=== PATIENT | male | born 1975 | race Caucasian/White ===

== ENCOUNTER → 2017-09-27 | Outpatient (CLI) | payer OTHER ==
[~2017-09-27] MED LIST: IOPAMIDOL (ISOVUE 370) 100 ML BTL IV ONE
== END ==
LOC: FIMAGING 13:46
PROVIDERS: ATTEND Thoracic Surgery (Cardiothoracic Vascular Surgery)
DX: I71.2 Thoracic aortic aneurysm, without rupture (principal); R91.1 Solitary pulmonary nodule
CPT/HCPCS: Q9967

== ENCOUNTER 2017-10-09 05:48 | Inpatient (IN) | payer SELFPAY ==
[2017-10-09] MEDS ORDERED: INSULIN REGULAR HUMAN 100 UNIT in NS 100 ML IV ONE (06:00)
[2017-10-09] MEDS ORDERED: TRANEXAMIC ACID 1,000 MG in NS (SYRINGE) 50 ML IV ONE (06:00)
[2017-10-09] MEDS ORDERED: MANNITOL 25% 12.5 GM/50 ML VIAL IVP ONE (06:00)
[2017-10-09] MEDS ORDERED: niCARdipine/NACL 200 ML IV SCH (06:00)
[2017-10-09] MEDS ORDERED: PHENYLEPHRINE HCL 50 MG in NS 250 ML IV ONE (06:00)
[2017-10-09] MEDS ORDERED: NOREPINEPHRINE BITARTRATE 16 MG in NS 250 ML IV ONE (06:00)
[2017-10-09] MEDS ORDERED: CITRATE DEXTROSE SOLN 500 ML BAG MISC ONE (06:00)
[2017-10-09] MEDS ORDERED: MUPIROCIN 2% 22 GM OINT NS ONE (06:00)
[2017-10-09] MEDS ORDERED: SODIUM BICARBONATE 20 MEQ, LIDOCAINE 1% 10 ML in NORMOSOL-R 1,000 ML MISC ONE (06:00)
[2017-10-09] MEDS ORDERED: ALBUMIN 5% 250 ML BOTTLE IV ONE ×2 (06:18→10:16)
[2017-10-09] MEDS ORDERED: PROTAMINE SULFATE 50 MG/5 ML VIAL IVP ONE (06:18)
[2017-10-09] MEDS ORDERED: CALCIUM CHLORIDE 1 GM/10 ML INJ ONE ×2 (06:19→07:16)
[2017-10-09] MEDS ORDERED: ceFAZolin 2 GM/SWFI 2 GM/20 ML SYR IVP ONE (06:19)
[2017-10-09] MEDS ORDERED: niCARdipine/NACL/200 ML BAG IV ONE (06:19)
[2017-10-09] MEDS ORDERED: MILRINONE/DEXTROSE/100 ML BAG IV ONE (06:19)
[2017-10-09] MEDS ORDERED: DOPamine/DEXTROSE/250 ML BAG IV ONE (06:19)
[2017-10-09] MEDS ORDERED: LIDOCAINE 2% 100 MG/5 ML SYR ONE ×2 (06:19→07:16)
[2017-10-09] MEDS ORDERED: NA BICARBONATE 50 MEQ/50 ML VIAL ONE (06:19)
[2017-10-09] MEDS ORDERED: CITRATE DEXTROSE SOLN 500 ML BAG ONE (06:19)
[2017-10-09] MEDS ORDERED: HEPARIN 10,000 UNIT/10 ML MDV (1,000 UNIT/ML) ONE (06:19)
[2017-10-09] MEDS ORDERED: LIDOCAINE 1% 2 ML INJ ID PRN (06:20)
[2017-10-09] MEDS ORDERED: LR 1,000 ML IV ONE (06:20)
[2017-10-09] MEDS ORDERED: MAGNESIUM SULFATE 1 GM/2 ML VIAL ONE (06:20)
[2017-10-09] MEDS ORDERED: ceFAZolin 1 GM VIAL ONE (06:20)
[2017-10-09] MEDS ORDERED: AMIODARONE HCL 150 MG/3 ML VIAL ONE (06:20)
[2017-10-09] MEDS ORDERED: methylPREDNISolone SOD SUCC 1 GM/8 ML VIAL ONE (06:20)
[2017-10-09] MEDS ORDERED: ADENOSINE 6 MG/2 ML VIAL ONE (06:20)
--- NOTE | 2017-10-09 06:52 | PDHPUP ---
History & Physical Update H&P update statement: This history and physical update is based on an assessment of the patient which was completed after admission or registration (within 24 hours), but prior to the surgery/procedure. H&P update: H&P reviewed & patient examined, no change in patient's condition since H&P completed
[2017-10-09] MEDS ORDERED: MIDAZOLAM 2 MG/2 ML VIAL ONE ×2 (07:04→07:16)
--- NOTE | 2017-10-09 07:06 | PDANEPAE ---
ANE History of Present Illness A/S and ascending Aortic Aneurism s/f repair ANE Past Medical History - Cardiovascular History Hx Hypertension: No Hx Arrhythmias: No Hx Chest Pain: No Hx Coronary Artery / Peripheral Vascular Disease: No Hx CHF / Valvular Disease: No Hx Palpitations: No Cardiovascular History Comment: HEART MURMUR SINCE CHILDHOOD - Pulmonary History Hx COPD: No Hx Asthma/Reactive Airway Disease: No Hx Recent Upper Respiratory Infection: No Hx Oxygen in Use at Home: No Hx Sleep Apnea: No Sleep Apnea Screening Result - Last Documented: Negative - Neurologic History Hx Cerebrovascular Accident: No Hx Seizures: No Hx Dementia: No - Endocrine History Hx Diabetes: No - Renal History Hx Renal Disorders: No - Liver History Hx Hepatic Disorders: No - Neurological & Psychiatric Hx Hx Neurological and Psychiatric Disorders: No - Cancer History Hx Cancer: No - Congenital Disorder History Hx Congenital Disorders: No - GI History Hx Gastrointestinal Disorders: No - Other Health History Other Health History: NEG - Chronic Pain History Chronic Pain: No - Surgical History Prior Surgeries: NONE ANE Review of Systems Review of Systems: - Exercise capacity METS (RN): 4 METS ANE Patient History - Allergies Allergies/Adverse Reactions: Penicillins Allergy (Verified 10/07/17 16:34) CHILDHOOD REACTION UNK - Home Medications Home medications: home medication list seen and reviewed Home Medications: Herbals/Supplements -Info Only 10/07/17 [Last Taken Unknown] - NPO status NPO Status: no food or drink >8 hours NPO Since - Liquids (Date): 10/08/17 NPO Since - Liquids (Time): 19:00 NPO Since - Solids (Date): 10/08/17 NPO Since - Solids (Time): 19:00 - Anes Hx Anes Hx: no prior problems - Smoking Hx Smoking Status: Former smoker - Alcohol Use Alcohol Use: Occasionally - Family Anes Hx Family Anes Hx: none Family Hx Anesthesia Complications: NONE ANE Labs/Vital Signs - Vital Signs Blood Pressure: 96/62 Heart Rate: 71 Respiratory Rate: 16 O2 Sat (%): 96 Height: 180.34 cm Weight: 74.843 kg ANE Physical Exam - Airway Mallampati Score: Class 1 Mouth exam: normal dental/mouth exam - Pulmonary Pulmonary: no respiratory distress - Cardiovascular Cardiovascular: regular rate and rhythym - ASA Status ASA Status: II ANE Anesthesia Plan Anesthesia Plan: general endotracheal anesthesia Lines/Monitors: arterial line, central line, MINE
[2017-10-09] MEDS ORDERED: ROCURONIUM 100 MG/10 ML VIAL ONE (07:16)
[2017-10-09] MEDS ORDERED: PHENYLEPHRINE HCL 100 MCG/ML SYR ONE (07:16)
[2017-10-09] MEDS ORDERED: REMIFENTANIL HCL 1 MG VIAL ONE (07:16)
[2017-10-09] MEDS ORDERED: DEXAMETHASONE 4 MG/ML VIAL ONE ×2 (07:16→07:17)
[2017-10-09] MEDS ORDERED: PROPOFOL/EMULSION 500 MG/50 ML BOTTLE IV ONE (07:16)
[2017-10-09] MEDS ORDERED: fentaNYL 250 MCG/5 ML INJ ONE (07:16)
[2017-10-09] MEDS ORDERED: ONDANSETRON 4 MG/2 ML VIAL ONE (07:17)
[2017-10-09] MEDS ORDERED: LIDOCAINE HCL 160 MG/4 ML LTA KIT TP ONE (07:25)
[2017-10-09] MEDS ORDERED: DEXMEDETOMIDINE/NS 4MCG/ML 50 ML BTL IV ONE (09:40)
[2017-10-09] MEDS ORDERED: MAGNESIUM SULF 2 GM/WATER 50 ML BAG IV ONE (10:16)
[2017-10-09] MEDS ORDERED: SUGAMMADEX SODIUM 200 MG/2 ML VIAL IVP ONE (10:31)
[2017-10-09] MEDS ORDERED: PANTOPRAZOLE SODIUM 40 MG VIAL IVP ONE (10:54)
[2017-10-09] MEDS ORDERED: SODIUM CL NASAL 45 ML BTL EACHNARE PRN (10:54)
[2017-10-09] MEDS ORDERED: D50W 25 GM/50 ML SYR IVP PRN (10:54)
[2017-10-09] MEDS ORDERED: LACTULOSE 20 GM/30 ML UDCUP PO PRN (10:54)
[2017-10-09] MEDS ORDERED: fentaNYL 100 MCG/2 ML INJ IVP PRN (10:54)
[2017-10-09] MEDS ORDERED: MAGNESIUM SULF 2 GM/WATER 50 ML IV ONE (10:54)
[2017-10-09] MEDS ORDERED: POLYETHYLENE GLYCOL 3350 17 GM PKT PO PRN (10:54)
[2017-10-09] MEDS ORDERED: MAGNESIUM HYDROXIDE 30 ML UDCUP PO PRN (10:54)
[2017-10-09] MEDS ORDERED: BISACODYL 10 MG SUPP PR PRN (10:54)
[2017-10-09] MEDS ORDERED: MEPERIDINE 25 MG/ML SYR IVP PRN (10:54)
[2017-10-09] MEDS ORDERED: ONDANSETRON DISINTEGRATING 4 MG TAB PO PRN (10:54)
[2017-10-09] MEDS ORDERED: ACETAMINOPHEN 650 MG SUPP PR PRN (10:54)
[2017-10-09] MEDS ORDERED: POTASSIUM Cl (KCl) 50 ML IV PRN (10:54)
[2017-10-09] MEDS ORDERED: CEPACOL LOZENGE PO PRN (10:54)
[2017-10-09] MEDS ORDERED: fentaNYL 25 MCG PATCH TD ONE (11:00)
[2017-10-09] MEDS ORDERED: NS 1,000 ML IV SCH (11:00)
[2017-10-09] MEDS ORDERED: INSULIN REGULAR HUMAN 100 UNIT in NS 100 ML IV SCH (11:00)
[2017-10-09] MEDS: KETOROLAC 15 MG/1 ML SDV IVP SCH ×3 (11:20→23:32)
--- NOTE | 2017-10-09 11:38 | CPEKG ---
Heart Rate: 75 RR Interval: 800 P-R Interval: 176 QRSD Interval: 118 QT Interval: 436 QTC Interval: 487 P [place]: 69 QRS [place]: -52 T Wave [place]: 73 EKG Severity - ABNORMAL ECG - EKG Impression: SINUS RHYTHM EKG Impression: IVCD EKG Impression: LEFT VENTRICULAR HYPERTROPHY Electronically Signed By: Sunil Kothari 09-Oct-2017 17:28:11
--- NOTE | 2017-10-09 11:50 | POSTANESTH ---
Post Anesthetic Evaluation Cardiovascular Status: Normal, Stable, Similar to Pre-Op Cond Respiratory Status: Tx Decrease in SpO2 Level of Consciousness/Mental Status: Can Participate in Eval, Mildly Sleepy, Arousable Pain Control: Inadeq, Add Tx Required Nausea/Vomiting Control: Adequate, Prn Tx Ordered Complications Possibly Related to Anesthesia: None Noted
--- NOTE | 2017-10-09 12:24 | GOP ---
[f rep st] OPERATIVE REPORT DATE OF OPERATION: 10/09/2017 SURGEON: Conner Figueroa DO PARK NATURALIST: Demetri Fraser PA-C ANESTHESIOLOGIST: Claude Raygoza MD PREOPERATIVE DIAGNOSIS: Critical aortic stenosis with bicuspid aortic valve and ascending aortic ane urysm. POSTOPERATIVE DIAGNOSIS: Critical aortic stenosis with bicuspid aortic valve and ascending aortic an eurysm. PROCEDURE PERFORMED: 1. Aortic valve replacement #25 Magna bioprosthesis. 2. Replace ascending aorta with #24 Hemashield graft. 3. AtriClip the left atrial appendage. FINDINGS: Patient was found to have critical aortic stenosis, symptomatic. Screening CT scan reveal ed a 5 cm ascending aorta. DESCRIPTION OF PROCEDURE: He was consented for surgery, brought to the operating room, intubated. M onitoring lines were placed. He was prepped and draped in sterile classical manner. A sternotomy was performed. He was heparinized cannulated in the transverse arch and right atrium. Cardiopulmonary bypass was begun. A cardioplegic arrest was obtained with antegrade cardioplegia, re trograde cardioplegia, topical hypothermia, and systemic cooling. Initially, the aorta was excised from sinotubular junction where was normal in dimension at 24 mm up to the base of the innominate artery, where it tapered back to normal. He appeared to have a bovine arch. The sinuses appeared to be normal. The aorta was very thin-walled and quite friable consisten t with connective tissue disorder. Heavily calcified bicuspid valve was excised in total. The anulu s was debrided and the LV chamber was irrigated. CO2 was infused. A 25 mm Magna valve was sutured i n place in a supra-annular position with interrupted 2-0 Tycron pledgeted mattress sutures. We then sutured a 24 mm Hemashield graft cut at a bevel to the undersurface of the arch with a continuous run elbert 3-0 Prolene suture reinforced in several sites with BioGlue applied. We performed a proximal an astomosis to the sinotubular junction in similar fashion. BioGlue was applied. It was tested under pressure. No bleeding was encountered. The cross-clamp was removed with suction on the ascending ao rtic vent and LV sump in Trendelenburg. We then placed an AtriClip across the base of the left atria l appendage. When no further air was identified, he was weaned from bypass. The heparin was reversed with protami ne. The cannula was removed and oversewn. Echo revealed good valvular function without insufficienc y and good biventricular function. He was noted to have significant left ventricular hypertrophy. C annula was removed and oversewn. Protamine was administered. 2 ventricular pacing wires and 2 media stinal drains were placed. The thymic fat and pericardium were closed. Chest was closed in standard fashion. Patient was returned to ICU in stable condition. /[id number]/MODL
--- NOTE | 2017-10-09 12:47 | ASMTCASEMG ---
Living Arrangements What is your living Answers: With Spouse arrangement? Who do you live with? Type Of Residence What kind of residence do Answers: House you live in? Discharge Plan Comments Coordination Status Comments Notes: Patient is a 42yo male who lives off the [address] in [place] but returned to [place] for guidance with his heart issues. Patient is having a valve aortic replacement and an aneurysm ascending aortic repair with Dr. Figueroa. PT/OT have been ordered. Will await therapy evals to determine D/C plan. CM will follow. Date Signed: 10/09/2017 12:46 PM Electronically Signed By:Chana Calderon LCSW
[2017-10-09] MEDS: ALBUMIN 5% 250 ML IV PRN ×2 (13:55→14:11)
[2017-10-09] MEDS ORDERED: ceFAZolin 2 GM/DEXTROSE 100 ML IV SCH (14:00)
[2017-10-09] MEDS: ONDANSETRON 4 MG/2 ML VIAL IVP PRN (14:12)
[2017-10-09] MEDS ORDERED: HYDROmorphONE/DILAUDID 6 MG/30 ML PCA IV PRN (15:14)
[2017-10-09] MEDS ORDERED: NALOXONE HCL 0.4 MG/ML INJ IVP PRN (15:14)
[2017-10-09] MEDS ORDERED: DEXMEDETOMIDINE IN 0.9 % NACL 50 ML IV SCH (15:30)
[2017-10-09] MEDS: ceFAZolin 2 GM/SWFI 2 GM/20 ML SYR IVP SCH ×2 (15:48→23:31)
[2017-10-09] MEDS: ALBUMIN 5% 250 ML IV SCH ×2 (15:58→16:15)
[2017-10-09] MEDS: MUPIROCIN 2% 22 GM OINT NS SCH (21:09)
[2017-10-09] MEDS: SENNOSIDES/DOCUSATE SODIUM TAB PO SCH (21:09)
[2017-10-10 04:16] LABS: PLATELET COUNT 213 10^3/uL (150-400)
[2017-10-10] MEDS: METOCLOPRAMIDE 10 MG/2 ML VIAL IVP PRN ×3 (05:04→23:54)
[2017-10-10] MEDS: ONDANSETRON 4 MG/2 ML VIAL IVP PRN ×2 (05:04→13:41)
[2017-10-10] MEDS: KETOROLAC 15 MG/1 ML SDV IVP SCH ×4 (06:08→23:48)
[2017-10-10] MEDS: ceFAZolin 2 GM/SWFI 2 GM/20 ML SYR IVP SCH ×3 (06:57→23:46)
[2017-10-10] MEDS: HEPARIN 5,000 UNIT/0.5 ML SYR SC SCH ×3 (06:57→21:07)
--- NOTE | 2017-10-10 07:38 | SOAPPROG ---
SOAP Progress Note Assessment/Plan: POD #1: AVR with #25 Magna bioprosthesis, asc ao replacement with #24 graft, AtriClip BRIELLE Critical bicuspid AV stenosis s/p AVR with bioprosthesis - CTs to bulb suction, FC/AL out - ASA for thromboprophylaxis - Beta-agustin for secondary prevention when appropriate - Heparin SQ/SCDs for DVT prophylaxis - PT/OT - Transfer to PCU Asc ao aneurysm s/p replacement with #24 graft - Mgmt as per AVR Acute blood loss anemia - Stable without the need for transfusions Subjective: Feels intermittent nausea. Denies vomiting. Denies pain/SOB. Objective: Vital Signs Temp Pulse Resp BP Pulse Ox 36.6 C 87 18 124/65 H 98 10/10/17 07:00 10/10/17 07:00 10/10/17 07:00 10/10/17 07:00 10/10/17 07:00 Laboratory Results 10/10/17 04:00 10/10/17 04:00 10/09/17 10/10/17 10/11/17 05:59 05:59 05:59 Intake Total 1784.2 Output Total 1982 Balance -197.8 Physical Exam - Physical Exam General Appearance: WD/WN, alert, no apparent distress EENT: No scleral icterus (R), No scleral icterus (L) Neck: normal inspection Respiratory: No respiratory distress Cardiac/Chest: regular rate, rhythm Abdomen: non-tender, soft, No distended Skin: normal color, warm/dry Extremities: No pedal edema Neuro/Psych: no motor/sensory deficits, alert, normal mood/affect, oriented x 3 ICD10 Worksheet Patient Problems: Problems Problem Status Onset Aortic valve stenosis with insufficiency Acute Ascending aortic aneurysm Acute Bicuspid aortic valve Acute S/P AVR (aortic valve replacement) Acute S/P ascending aortic aneurysm repair Acute
[2017-10-10] MEDS: HYDROCODONE/APAP 5/325 TAB PO PRN ×2 (07:43→11:04)
[2017-10-10] MEDS: ASPIRIN 81 MG CHEWABLE TAB PO SCH (09:25)
[2017-10-10] MEDS: PANTOPRAZOLE SODIUM 40 MG TAB PO SCH (09:26)
[2017-10-10] MEDS: MUPIROCIN 2% 22 GM OINT NS SCH ×2 (09:26→20:53)
[2017-10-10] MEDS: SENNOSIDES/DOCUSATE SODIUM TAB PO SCH ×2 (09:26→20:52)
[2017-10-10] MEDS: traMADol 50 MG TAB PO PRN ×3 (14:19→23:47)
[2017-10-11] MEDS: traMADol 50 MG TAB PO PRN ×4 (04:02→20:00)
[2017-10-11 04:08] LABS: PLATELET COUNT 213 10^3/uL (150-400)
[2017-10-11] MEDS: HEPARIN 5,000 UNIT/0.5 ML SYR SC SCH ×3 (05:55→20:01)
[2017-10-11] MEDS: KETOROLAC 15 MG/1 ML SDV IVP SCH (05:55)
--- NOTE | 2017-10-11 07:36 | SOAPPROG ---
SOAP Progress Note Assessment/Plan: Assessment: POD#2 AVR with #25 Magna bioprosthesis, asc ao replacement with #24 graft, prophylactic AtriClip ligation BRIELLE BAV with critical and asc ao aneurysm - s/p tissue AVR with asc ao replacement with dacron interposition graft. Stable early postop course. No sig fluid overload. AF prophylaxis with BB as tolerated. Antithrombotic prophylaxis with ASA alone pending stability of rhythm. Acute blood loss anemia - Stable without the need for transfusions. Heparin SQ/ SCDs for DVT prophylaxis Plan: CTs and Vwire removed. Advance diet. Switch toradol to prn ibuprofen. Start metoprolol tartrate 12.5 mg BID with conservative hold parameters. Cont inc activity and pulm toilet. Dispo - Anticipate home without services next 1-2 days. 10/11/17 07:34 Subjective: Comfortable. Improving appetite. + flatus. Moving independently with relative ease. Objective: Vital Signs Temp Pulse Resp BP Pulse Ox 36.9 C 83 15 116/60 96 10/11/17 03:57 10/11/17 03:57 10/11/17 03:57 10/11/17 03:57 10/11/17 03:57 Laboratory Results 10/11/17 04:00 10/11/17 04:00 10/10/17 10/11/17 10/12/17 05:59 05:59 05:59 Intake Total 1784.2 1000 Output Total 1982 210 Balance -197.8 790 HR and BP controlled. No ectopy. Almost off O2. CTs at removal criteria. Adequate fluid balance. Labs ok. - Pending Discharge Pending Discharge Within 48 Hours: Yes Pending Discharge Date: 10/13/17 Pending Discharge Time: 11:00 Physical Exam - Physical Exam General Appearance: alert, no apparent distress Respiratory: lungs clear, other (blakes x 2 to bulb suction, thin serosang drainage. Both tubes pulled without incident after Vwire out.) Cardiac/Chest: regular rate, rhythm, other (Sternum grossly stable. Sternotomy CDI.) Abdomen: normal bowel sounds, non-tender, soft Skin: warm/dry Extremities: other (no visible edema) ICD10 Worksheet Patient Problems: Problems Problem Status Onset Aortic valve stenosis with insufficiency Acute Ascending aortic aneurysm Acute Bicuspid aortic valve Acute S/P AVR (aortic valve replacement) Acute S/P ascending aortic aneurysm repair Acute
[2017-10-11] MEDS: MUPIROCIN 2% 22 GM OINT NS SCH (08:10)
[2017-10-11] MEDS: ASPIRIN 81 MG CHEWABLE TAB PO SCH (08:10)
[2017-10-11] MEDS: PANTOPRAZOLE SODIUM 40 MG TAB PO SCH (08:10)
[2017-10-11] MEDS: SENNOSIDES/DOCUSATE SODIUM TAB PO SCH ×2 (08:10→19:53)
[2017-10-11] MEDS: METOPROLOL TARTRATE 25 MG TAB PO SCH ×2 (09:18→19:55)
[2017-10-11] MEDS: IBUPROFEN 600 MG TAB PO PRN (11:55)
[2017-10-11] MEDS ORDERED: FUROSEMIDE 20 MG/2 ML VIAL IVP ONE (16:53)
[2017-10-11] MEDS: METOCLOPRAMIDE 10 MG/2 ML VIAL IVP PRN (19:52)
[2017-10-12] MEDS: HEPARIN 5,000 UNIT/0.5 ML SYR SC SCH ×3 (05:31→21:19)
--- NOTE | 2017-10-12 07:20 | SOAPPROG ---
SOAP Progress Note Assessment/Plan: Assessment/Plan: POD #3: AVR with #25 Magna bioprosthesis, asc ao replacement with #24 graft, AtriClip BRIELLE Critical bicuspid AV stenosis s/p AVR with bioprosthesis - CTs, PW and hill are out. - Routine postop echo was performed today. Results pending. - ASA for thromboprophylaxis - Beta-agustin for secondary prevention - Heparin SQ/SCDs for DVT prophylaxis - PT/OT Asc ao aneurysm s/p replacement with #24 graft - Mgmt as per AVR Acute blood loss anemia - Stable without the need for transfusions Nausea - Persists despite Zofran. Patient does not think this is related to his pain meds. - Will add Scop patch Pain - Controlled with Ultram Constipation - Passing flatus. Continue current bowel protocol. - Will order suppository today. If not effective will order an enema. Dispo - Likely discharge to home tomorrow. Subjective: Patient reports continued nausea. He does not feel comfortable going home without having a bowel movement yet. Reports good pain control. Objective: Vital Signs Temp Pulse Resp BP Pulse Ox 36.5 C 90 17 112/77 94 10/12/17 05:48 10/12/17 05:48 10/12/17 05:48 10/12/17 05:48 10/12/17 05:48 Laboratory Results 10/11/17 04:00 10/12/17 05:30 10/11/17 10/12/17 10/13/17 05:59 05:59 05:59 Intake Total 1000 1850 Output Total 210 1732 Balance 790 118 Physical Exam - Physical Exam General Appearance: WD/WN, alert Respiratory: lungs clear, decreased breath sounds (bases) Cardiac/Chest: regular rate, rhythm, systolic murmur (LSB/RSB 2nd-3rd ICS ), other (sternum stable, sternotomy c/d/i) Abdomen: normal bowel sounds, non-tender, soft Skin: warm/dry Extremities: other (no lower extremity edema) Neuro/Psych: alert, normal mood/affect, oriented x 3 ICD10 Worksheet Patient Problems: Problems Problem Status Onset Aortic valve stenosis with insufficiency Acute Ascending aortic aneurysm Acute Bicuspid aortic valve Acute S/P AVR (aortic valve replacement) Acute S/P ascending aortic aneurysm repair Acute
[2017-10-12] MEDS: SENNOSIDES/DOCUSATE SODIUM TAB PO SCH ×2 (08:28→21:47)
[2017-10-12] MEDS: ACETAMINOPHEN 325 MG TAB PO PRN ×2 (08:28→20:05)
[2017-10-12] MEDS: ASPIRIN 81 MG CHEWABLE TAB PO SCH (08:29)
[2017-10-12] MEDS: METOPROLOL TARTRATE 25 MG TAB PO SCH ×2 (08:29→21:17)
[2017-10-12] MEDS: traMADol 50 MG TAB PO PRN (08:29)
[2017-10-12] MEDS: PANTOPRAZOLE SODIUM 40 MG TAB PO SCH (08:29)
[2017-10-12] MEDS: ONDANSETRON 4 MG/2 ML VIAL IVP PRN (08:39)
[2017-10-12] MEDS ORDERED: BISACODYL 10 MG SUPP PR ONE ×2 (09:43→12:30)
[2017-10-12] MEDS ORDERED: SCOPOLAMINE HYDROBROMIDE 1 MG/3 DAYS PATCH TD SCH (09:45)
[2017-10-12] MEDS: IBUPROFEN 600 MG TAB PO PRN ×2 (12:35→20:05)
--- NOTE | 2017-10-12 12:36 | ECHO ---
[email or web address] [address] [address] Main: [phone] Fax: Transthoracic Echocardiogram Name: YASEMIN BRUNER MR#: [id number] Study Date: 10/12/2017 Study Time: 07:54 AM Date of : 1975 Age: 42 year(s) Height: 180.3 cm (71 in.) Weight: 78.02 kg (172 lb.) BSA: 1.98 m2 Gender: Male Examination: Echo Indication: Routine baseline postop s/p AVR #25 CE 10 Magna bovine valve Image Quality: Contrast: Requested by: Shanthi Waller BP: 106 mmHg/65 mmHg Heart Rate: Rhythm: Indication: Routine baseline postop s/p AVR #25 CE Magna bovine valve Procedure Staff Side Puller: Laura Ugarte RDCS Reading Physician: Evens Kang MD Requesting Provider: Conclusions: Mild concentric LV hypertrophy. Normal global systolic LV function. EF is 64 %. The aortic valve is a bioprosthesis. No AV velocities obtained from this limited study. No turbulence visualized with color flow doppler indicating no high velocities.. Mild tricuspid regurgitation is present. Limited views available for visualization (pt sleeps in chair). Would recommend repeat in AM when patient is able to be in bed.. Measurements: Chambers Valvular Assessment AV/MV Valvular Assessment TV/PV Normal Normal Normal Name Value Range Name Value Range Name Value Range Ao Lilly (2D): 3.2 cm (1.4 cm-2.6 TR Vmax: 2.31 mm/s ( - ) cm) TR PGmax: 21 mmHg ( - ) IVSd (2D): 0.9 cm (0.6 cm-1.1 syst. PAP: 26 mmHg ( - ) cm) LVDd (2D): 4.3 cm (4.2 cm-5.9 cm) LVDs (2D): 2.8 cm (2.1 cm-4 cm) LVPWd (2D): 0.8 cm (0.6 cm-1 cm) LVEF (2D): 64 (>=54 %) Continued Measurements: Chambers Valvular Assessment TV/PV Patient: YASEMIN BRUNER Study Date: 10/12/2017 Page 1 of 2 07:54 AM Name Value Name Value LADs: 3.2 cm CVP (est.): 5 mmHg Findings: Left Ventricle: Mild concentric LV hypertrophy. Normal global systolic LV function. EF is 64 %. Aortic Valve: The aortic valve is a bioprosthesis. No AV velocities obtained from this limited study. No turbulence visualized with color flow doppler indicating no high velocities.. Tricuspid Valve: Mild tricuspid regurgitation is present. Exam Comments: Limited views available for visualization (pt sleeps in chair). Would recommend repeat in AM when patient is able to be in bed.. (No Signature Object) Patient: YASEMIN BRUNER Study Date: 10/12/2017 Page 2 of 2 07:54 AM [id number]
--- NOTE | 2017-10-12 12:41 | ASMTCMCOM ---
CM Note CM Note Notes: 10/12/2017 Case Management Note Met w/pt and Nadira [phone]. Pt has rented an Air bnb for a short term rental until 11/16/2017. Pt has siblings and parents in the [place] area for support. Pt mom Kenia can be reached at [phone]. PT is recommending home with outpatient rehab. There are no other case management d/c needs identified. Case Management d/c poc: home independent with follow up as directed. Case Management available if needs change. Date Signed: 10/12/2017 12:40 PM Electronically Signed By:Sowmya Freeman RN
--- NOTE | 2017-10-12 16:31 | SOAPPROG ---
SOAP Progress Note Assessment/Plan: Assessment: Doing well. Feeling better with scopolamine patch. Ambulating well. Home in am Plan: 10/12/17 16:30 Subjective: C/o nausea last night and this morning. Feeling better now. BM + Objective: Vital Signs Temp Pulse Resp BP Pulse Ox 37.0 C 80 12 102/62 93 10/12/17 12:00 10/12/17 12:00 10/12/17 12:00 10/12/17 12:00 10/12/17 12:00 Laboratory Results 10/11/17 04:00 10/12/17 05:30 10/11/17 10/12/17 10/13/17 05:59 05:59 05:59 Intake Total 1000 1850 Output Total 210 1732 Balance 790 118 Neuro intact Breathing comfortably ICD10 Worksheet Patient Problems: Problems Problem Status Onset Aortic valve stenosis with insufficiency Acute Ascending aortic aneurysm Acute Bicuspid aortic valve Acute S/P AVR (aortic valve replacement) Acute S/P ascending aortic aneurysm repair Acute
[2017-10-13] MEDS: ACETAMINOPHEN 325 MG TAB PO PRN ×2 (00:45→06:02)
[2017-10-13] MEDS: IBUPROFEN 600 MG TAB PO PRN ×2 (06:07→13:06)
[2017-10-13] MEDS: HEPARIN 5,000 UNIT/0.5 ML SYR SC SCH ×2 (06:07→14:22)
--- NOTE | 2017-10-13 08:16 | SOAPPROG ---
SOAP Progress Note Assessment/Plan: Assessment/Plan: POD #4: AVR with #25 Magna bioprosthesis, asc ao replacement with #24 graft, AtriClip BRIELLE Critical bicuspid AV stenosis s/p AVR with bioprosthesis - Routine postop echo performed yesterday. Normal EF and high gradients across bioprosthetic aortic valve were not appreciated. - ASA for thromboprophylaxis - Beta-agustin for secondary prevention - Heparin SQ/SCDs for DVT prophylaxis (patient refusing) - PT/OT Asc ao aneurysm s/p replacement with #24 graft - Mgmt as per AVR Acute blood loss anemia - Stable without the need for transfusions Urinary hesitancy - Will obtain Urinalysis. Nausea - Improved with Scop patch. Pain - Controlled with Motrin and Ultram prn. Constipation - Resolved. Patient has had multiple BMs since yesterday. Dispo - Will discharge to home today on home O2. Subjective: Patient reports improved nausea and good pain control. Objective: Vital Signs Temp Pulse Resp BP Pulse Ox 37.1 C 68 18 115/67 94 10/13/17 05:58 10/13/17 05:58 10/13/17 05:58 10/13/17 05:58 10/13/17 05:58 Laboratory Results 10/11/17 04:00 10/12/17 05:30 10/12/17 10/13/17 10/14/17 05:59 05:59 05:59 Intake Total 1850 300 Output Total 1732 200 Balance 118 100 Physical Exam - Physical Exam General Appearance: WD/WN, alert, no apparent distress Respiratory: lungs clear, decreased breath sounds (right base) Cardiac/Chest: regular rate, rhythm (sternum stable, sternotomy c/d/i) Abdomen: normal bowel sounds, non-tender, soft Skin: normal color, warm/dry Extremities: other (minimal lower extremity edema) Neuro/Psych: alert, normal mood/affect, oriented x 3 ICD10 Worksheet Patient Problems: Problems Problem Status Onset Aortic valve stenosis with insufficiency Acute Ascending aortic aneurysm Acute Bicuspid aortic valve Acute S/P AVR (aortic valve replacement) Acute S/P ascending aortic aneurysm repair Acute
[2017-10-13] MEDS ORDERED: FUROSEMIDE 40 MG TAB PO SCH (09:00)
[2017-10-13] MEDS ORDERED: POTASSIUM CL 20 MEQ TAB PO ONE (09:00)
[2017-10-13] MEDS: PANTOPRAZOLE SODIUM 40 MG TAB PO SCH (10:27)
[2017-10-13] MEDS: ASPIRIN 81 MG CHEWABLE TAB PO SCH (10:27)
[2017-10-13] MEDS ORDERED: POTASSIUM CL 20 MEQ/15 ML UDCUP PO SCH (10:45)
--- NOTE | 2017-10-13 11:03 | PDHOMEO2F ---
Home Oxygen Face to Face Home Orders: I certify that a physician or a nurse practitioner or physician's physician assistant certified has had a [id number] encounter with this patient on the date of this order due to the diagnosis listed, which relates to the primary reason the patient requires home oxygen. Alternative treatments have been tried, or considered, and deemed ineffective. It is anticipated that supplemental oxygen will result in improvement with treatment. Home oxygen qualifying diagnosis: Respiratory insufficiency Home oxygen secondary diagnosis: s/p cardiac surgery SpO2 on room air (%): 87 Frequency of home oxygen needed: continuous Home oxygen liters per minute: 1 Home oxygen delivery device: nasal cannula Concentrator: Yes E-tanks for mobility and back up: Yes If ordering portable O2, is the patient mobile in the home?: Yes I certify that, based on these findings, the home oxygen is medically necessary for this patient for the following length of time. Length of time home oxygen needed: 99 years
[2017-10-13 11:38] VITALS: BP 114/70; PULSE 88; RESP 14; TEMP 97.8; O2SAT 90
[2017-10-13] MEDS: SENNOSIDES/DOCUSATE SODIUM TAB PO SCH (11:57)
--- NOTE | 2017-10-13 13:02 | GDS ---
[f rep st] DISCHARGE SUMMARY DISCHARGE DIAGNOSES: Aortic stenosis and ascending aortic aneurysm. CONDITION ON DISCHARGE: Stable. REASON FOR HOSPITALIZATION: Aortic stenosis and ascending aortic aneurysm, bicuspid aortic valve. HOSPITAL COURSE: The patient has known symptomatic critical aortic stenosis and was found to have an ascending aortic aneurysm, measuring 5 cm. He was taken to the operating room by Dr. Conner Figueroa on October 09, 2017, where he underwent an aortic valve replacement with a #25 Magna bioprosthesis, as well as replacement of his ascending aorta with a #24 Hemashield graft. The patient also had AtriCl ip of the left atrial appendage. The patient tolerated the procedure well and was transferred to the ICU in stable condition. The patient was extubated on postop day zero without difficulty. His ches t tubes and pacing wires were removed without complications. He was transferred to the stepdown unit on postop day 1. He had problems with nausea throughout his postoperative course for which he was i nitially treated with Zofran without relief. He was started on a scopolamine patch with good relief. The patient's pain was controlled with Toradol, which was switched to ibuprofen. He also received Ultram for additional pain control. He was initiated on metoprolol low dose, which he tolerated well . He was complaining of problems with urinary hesitancy, for which a urinalysis was performed, which was negative. The patient's pain was controlled, he was tolerating his diet, and having bowel movem ents. He was deemed appropriate for discharge to home on postop day 4, with instructions to follow u p with Dr. Figueroa, as well as his anesthesiology faculty. Of note, the patient was still requiring 1 liter of o xygen for suboptimal O2 sats when ambulating and while sleeping. He will be discharged on home oxyge n. DISCHARGE MEDICATIONS: 1. Aspirin 81 mg p.o. daily. 2. Furosemide 40 mg p.o. daily x3 days. 3. Ibuprofen 600 mg p.o. q.i.d. p.r.n. 4. Metoprolol tartrate 12.5 mg p.o. b.i.d. 5. Potassium chloride 20 mEq p.o. daily x3 days. 6. Scopolamine patch 1 patch transdermal q.72 hours p.r.n. 7. Tramadol 50 to 100 mg p.o. q.6 hours p.r.n. pain. PHYSICAL EXAMINATION DAY OF DISCHARGE: GENERAL APPEARANCE: Well-developed, well-nourished, alert, n o apparent distress. RESPIRATORY: Lungs clear, decreased breath sounds right base. CARDIAC/CHEST: Regular, rate and rhythm. Sternum stable. Sternotomy clean, dry and intact. ABDOMEN: Normal bowel sounds, nontender, soft. SKIN: Normal color, warm and dry. EXTREMITIES: Minimal lower extremity edema. NEURO/PSYCH: Alert, normal mood/affect. Oriented x3. DISCHARGE INSTRUCTIONS: The patient was instructed to observe sternal precautions for 6 to 8 weeks, with no lifting, pushing, or pulling anything greater than 15 pounds during this time. He is not all owed to drive for 2 weeks or while he is taking narcotics. He will be discharged on a regular diet. He should shower daily, cleaning his surgical incisions with soap and water. He is not to submerge his incisions in water, such as swimming, bathing or hot tubs until his incision is completely healed with no scabs or glue remaining. The patient should follow up with Dr. Figueroa, with a chest x-ray as directed. He should also follow u p with his anesthesiology faculty in 4 weeks. /[id number]/MODL
[2017-10-13] MEDS: METOPROLOL TARTRATE 25 MG TAB PO SCH (13:06)
--- NOTE | 2017-10-13 13:34 | ASMTLACE ---
LACE Length of stay for Answers: 4-6 days current admission Acuity / Level of Answers: Yes Care: Did the patient have an inpatient admission? Comorbidities - select Answers: Cerebrovascular disease all that apply (CVA, TIA, aneurysms, vasc ular dementia) # of Emergency department Answers: 0 visits in the last 6 months Score: 8 Date Signed: 10/13/2017 01:34 PM Electronically Signed By:Sowmya Freeman RN
--- NOTE | 2017-10-13 14:54 | ASDISCHSUM ---
Discharge Information Plan Status:Home with No Needs Medically Cleared to Leave:10/12/2017 Discharge Date:10/13/2017 02:50 PM CM D/C Disposition:Home, Routine, Self-Care ADT D/C Disposition:Home, Routine, Self-Care Projected Discharge Date:10/13/2017 02:50 PM Transportation at D/C:Family Discharge Delay Reason: Follow-Up Date:10/13/2017 02:50 PM Discharge Slot: Final Diagnosis: Placement Information Patient Contact Information Contact Name:SAROJ Relationship: Address:[address] Work Phone: City:[facility] Phone: [facility] Code:[place] [address] Email: Financial Information Financial Class:Self-Pay Primary Plan Desc:SELF PAY Primary Plan Number: Secondary Plan Desc: Secondary Plan Number: Assessment Information [facility] Initial CM Assessment Living Arrangements What is your living Answers: With Spouse arrangement? Who do you live with? Type Of Residence What kind of residence do Answers: House you live in? Discharge Plan Comments Coordination Status Comments Notes: Patient is a 42yo male who lives off the [facility] in [place] but returned to [place] for guidance with his heart issues. Patient is having a valve aortic replacement and an aneurysm ascending aortic repair with Dr. Figueroa. PT/OT have been ordered. Will await therapy evals to determine D/C plan. CM will follow. Date Signed: 10/09/2017 12:46 PM Electronically Signed By:Chana Calderon LCSW [facility] CM Progress Note CM Note CM Note Notes: 10/12/2017 Case Management Note Met w/pt and Nadira [phone]. Pt has rented an Air bnb for a short term rental until 11/16/2017. Pt has siblings and parents in the [place] area for support. Pt kaykay Aquino can be reached at [phone]. PT is recommending home with outpatient rehab. There are no other case management d/c needs identified. Case Management d/c poc: home independent with follow up as directed. Case Management available if needs change. Date Signed: 10/12/2017 12:40 PM Electronically Signed By:Sowmya Freeman RN LACE LACE Length of stay for Answers: 4-6 days current admission Acuity / Level of Answers: Yes Care: Did the patient have an inpatient admission? Comorbidities - select Answers: Cerebrovascular disease all that apply (CVA, TIA, aneurysms, vasc ular dementia) # of Emergency department Answers: 0 visits in the last 6 months Score: 8 Date Signed: 10/13/2017 01:34 PM Electronically Signed By:Sowmya Freeman RN Case Management Discharge Plan Note Case Management Discharge Discharge Order Complete? Answers: Yes Patient to Obtain Answers: via Family Medications Transportation Arranged Answers: Family/Friends Discharge Comments Notes: 10/13/2017 Case Management Note Pt to d/c to air bnb with transporting. Will follow up with MD's as instructed. No further case management d/c needs identified. Date Signed: 10/13/2017 02:53 PM Electronically Signed By:Sowmya Freeman RN Intervention Information
[2017-10-14] MEDS ORDERED: POTASSIUM CL 20 MEQ TAB PO SCH (09:00)
[2017-10-15] MEDS ORDERED: PATCH REMOVAL 1 EA PATCH TD SCH (09:42)
== END 2017-10-13 14:50 | disposition home or self-care (01) | DRG 220 ==
LOC: F3N 05:48 → F2N 11:02 → F2W 10-11 13:44
PROVIDERS: ADMIT Thoracic Surgery (Cardiothoracic Vascular Surgery); ATTEND Thoracic Surgery (Cardiothoracic Vascular Surgery)
PROC: 02RF08Z Replacement of Aortic Valve with Zooplastic Tissue, Open Approach (ICD-10-PCS; principal; 2017-10-09 07:15)
PROC: 5A1221Z Performance of Cardiac Output, Continuous (ICD-10-PCS; principal; 2017-10-09 07:15)
PROC: 02L70CK Occlusion of Left Atrial Appendage with Extraluminal Device, Open Approach (ICD-10-PCS; principal; 2017-10-09 07:15)
PROC: 5A1223Z Performance of Cardiac Pacing, Continuous (ICD-10-PCS; principal; 2017-10-09 07:15)
PROC: 02RX0JZ Replacement of Thoracic Aorta, Ascending/Arch with Synthetic Substitute, Open Approach (ICD-10-PCS; principal; 2017-10-09 07:15)
PROC: B245ZZ4 Ultrasonography of Left Heart, Transesophageal (ICD-10-PCS; principal; 2017-10-09 07:15)
DX: I35.2 Nonrheumatic aortic (valve) stenosis with insufficiency (principal); I71.2 Thoracic aortic aneurysm, without rupture; D62 Acute posthemorrhagic anemia; R11.0 Nausea; R39.11 Hesitancy of micturition; Z87.891 Personal history of nicotine dependence; Z88.0 Allergy status to penicillin
CPT/HCPCS: 82947-QW; 97116-GP; 97161-GP; 97165-GO; 97530-GP; 97535-GO; C1768; J0153; J0282; J0690; J1100; J1170; J1265; J1644; J1815; J1885; J1940; J2001; J2150; J2250; J2260; J2370; J2405; J2704; J2720; J2765; J2930; J3010; J3475; J7060; P9041

== ENCOUNTER → 2017-10-22 | Outpatient (CLI) | payer OTHER | LOC: FIMAGING 09:35 | PROVIDERS: ATTEND Thoracic Surgery (Cardiothoracic Vascular Surgery) | DX: Z48.812 Encounter for surgical aftercare following surgery on the circulatory system (principal); Z95.2 Presence of prosthetic heart valve ==